=== PATIENT | male | born 1985 | race Caucasian/White ===

== ENCOUNTER 2019-06-16 22:50 | Emergency (ER) | payer OTHER ==
[2019-06-16 22:56] VITALS: BP 160/104
--- NOTE | 2019-06-17 00:52 | ED ---
Upper Extremity Pain - HPI Summary HPI Summary: 33-year-old male presents with left hand injury today. He states he fell down and landed on his left hand. Denies any wrist pain. States pain is greatest over his thumb. Has an abrasion noted to the palmar aspect hand. He denies any foreign body in the wound. Has limited range of motion of hand. He states area started to swell. He is right-handed. He works in the OR. - History of Current Complaint Chief Complaint: EDExtremityUpper Stated Complaint: FALL HAND LACERATION Time Seen by Provider: 06/17/19 00:31 - Allergies/Home Medications Allergies/Adverse Reactions: Allergies Allergy/AdvReac Type Severity Reaction Status Date / Time No Known Allergies Allergy Verified 06/16/19 22:56 PMH/Surg Hx/FS Hx/Imm Hx Endocrine/Hematology History: Denies: Hx Anticoagulant Therapy Respiratory History: Denies: Hx Asthma Infectious Disease History: No Infectious Disease History: Denies: Traveled Outside the [place] in Last 30 Days - Family History Known Family History: Positive: Non-Contributory - Social History Alcohol Use: Occasionally Substance Use Type: Reports: None Smoking Status (MU): Never Smoked Tobacco Review of Systems Negative: Fever Negative: Chest Pain Negative: Shortness Of Breath Positive: Myalgia - left hand pain All Other Systems Reviewed And Are Negative: Yes Physical Exam Triage Information Reviewed: Yes Vital Signs On Initial Exam: Initial Vitals Temp Pulse Resp BP Pulse Ox 97.9 F 124 18 160/104 98 06/16/19 22:53 06/16/19 22:53 06/16/19 22:53 06/16/19 22:53 06/16/19 22:53 Vital Signs Reviewed: Yes Appearance: Positive: Well-Appearing Skin: Positive: Warm, Dry, Other - 2cm abrasion to left palm Head/Face: Positive: Normal Head/Face Inspection Eyes: Positive: Normal, Conjunctiva Clear ENT: Positive: Pharynx normal Respiratory/Lung Sounds: Positive: Clear to Auscultation, Breath Sounds Present Cardiovascular: Positive: Normal, RRR Musculoskeletal: Positive: Limited @ - left thumb, Other - tenderness over left thumb metacarpel, snuff box tenderness, edema over palmar aspect of left thumb Neurological: Positive: Normal Psychiatric: Positive: Normal Procedures - Sedation Patient Received Moderate/Deep Sedation with Procedure: No - Laceration/Wound Repair 1 Location: Other - left hand Description: Irregular Length, Depth and Shape: 2cm superficial Irrigated w/ Saline (ccs): 500 Closure: Skin Adhesive Diagnostics - Vital Signs Vital Signs Temp Pulse Resp BP Pulse Ox 06/16/19 22:53 97.9 F 124 18 160/104 98 - Laboratory Lab Statement: Any lab studies that have been ordered have been reviewed, and results considered in the medical decision making process. - Radiology hand Radiology Interpretation Completed By: ED Physician Summary of Radiographic Findings: no fracture Course/Dx - Course Course Of Treatment: 33-year-old male presents with left hand injury today. He states he fell down and landed on his left hand. Denies any wrist pain. States pain is greatest over his thumb. Has an abrasion noted to the palmar aspect hand. He denies any foreign body in the wound. Has limited range of motion of hand. He states area started to swell. He is right-handed. He works in the OR. On exam tenderness over left thumb with edema noted to metacarpal of left thumb. Does have some snuffbox tenderness. X-ray shows no fracture but with the snuffbox tenderness will treat as potential scaphoid fracture. Cleaned abrasion and place glued. Place removable thumb spica splint. Will have follow-up with orthopedic. Patient understands agrees with plan. - Diagnoses Differential Diagnosis/HQI/PQRI: Positive: Contusion, Fracture (Closed), Strain Provider Diagnoses: Injury of left hand Discharge ED - Sign-Out/Discharge Documenting (check all that apply): Patient Departure - Discharge Plan Condition: Good Disposition: HOME Patient Education Materials: Skin Adhesive Care (ED), Suspected Fracture (ED) Referrals: Gene Gracia MD [Medical Doctor] - Additional Instructions: keep area dry for next 24 hours ice, elevate keep splint on area Follow up with ortho Return to ED if develop any new or worsening symptoms - Billing Disposition and Condition Condition: GOOD Disposition: Home
== END 2019-06-17 01:04 | disposition home or self-care (01) ==
LOC: ED 22:50
DX: S69.92XA Unspecified injury of left wrist, hand and finger(s), initial encounter (principal); W19.XXXA Unspecified fall, initial encounter; Y92.9 Unspecified place or not applicable
CPT/HCPCS: 99282